=== PATIENT | female | born 2000 | race Caucasian/White ===

== ENCOUNTER 2021-09-20 22:17 | Emergency (ER) | payer SELFPAY ==
[2021-09-21 00:56] VITALS: BP 112/56
[2021-09-21 01:33] LABS: Basophils % (Auto) 0.5 % (0.0-1.8); Eosinophils # (Auto) 0.1 K/mm3 (0.0-0.4); Eosinophils % (Auto) 1.5 % (0.0-4.3); Hematocrit 40.8 % (30.3-42.9); Hemoglobin 13.4 gm/dl (10.1-14.3); Lymphocytes # (Auto) 3.7 K/mm3 (1.2-5.4); Lymphocytes % (Auto) 41.2 % (13.4-35.0); Mean Corpuscular HGB Conc 33 % (30-34); Mean Corpuscular Volume 88 fl (79-97); Monocytes # (Auto) 0.6 K/mm3 (0.0-0.8); Monocytes % (Auto) 6.3 % (0.0-7.3); Platelet Count 266 K/mm3 (140-440); Red Blood Count 4.63 M/mm3 (3.65-5.03); Red Cell Distribution Width 13.5 % (13.2-15.2)
[2021-09-21 01:48] LABS: Alanine Aminotransferase 12 units/L (7-56); Blood Urea Nitrogen 11 mg/dL (7-17); Calcium 9.9 mg/dL (8.4-10.2); Hemolysis Index 10
[2021-09-21 02:08] LABS: BUN/Creatinine Ratio 18
[2021-09-21 02:24] LABS: Bilirubin,Urine NEG (Negative); Blood,Urine NEG (Negative); Calcium Oxalate Crystals,Urine 1+; Color,Urine Yellow (Yellow); Mucus,Urine 3+ /HPF; Urobilinogen,Urine < 2.0 mg/dL (<2.0)
[2021-09-21] MEDS ORDERED: ONDANSETRON 4 MG ODT TAB PO ONE (09:27)
[2021-09-21] MEDS ORDERED: AMOXICILLIN 500 MG CAP PO ONE (09:27)
--- NOTE | 2021-09-21 09:59 | Emergency Department Report ---
[place] [facility] Chief Complaint: Chest Pain Stated Complaint: VOMITTING Time Seen by Provider: 09/21/21 09:27 ED Review of Systems ROS: Stated complaint: VOMITTING Other details as noted in HPI ED Past Medical Hx - Past Medical History Previous Medical History?: No - Surgical History Past Surgical History?: No Dysuria Exam - Exam General: Vital signs noted. No distress. Alert and acting appropriately. Labs: Lab Results 09/21/21 09/21/21 09/21/21 Range/Units 01:01 01:01 Unknown WBC 9.0 (4.5-11.0) K/mm3 RBC 4.63 (3.65-5.03) M/mm3 Hgb 13.4 (10.1-14.3) gm/dl Hct 40.8 (30.3-42.9) % MCV 88 (79-97) fl MCH 29 (28-32) pg MCHC 33 (30-34) % RDW 13.5 (13.2-15.2) % Plt Count 266 (140-440) K/mm3 Lymph % (Auto) 41.2 H (13.4-35.0) % [place] % (Auto) 6.3 (0.0-7.3) % Eos % (Auto) 1.5 (0.0-4.3) % Baso % (Auto) 0.5 (0.0-1.8) % Lymph # (Auto) 3.7 (1.2-5.4) K/mm3 [place] # (Auto) 0.6 (0.0-0.8) K/mm3 Eos # (Auto) 0.1 (0.0-0.4) K/mm3 Baso # (Auto) 0.0 (0.0-0.1) K/mm3 Seg Neutrophils % 50.5 (40.0-70.0) % Seg Neutrophils # 4.5 (1.8-7.7) K/mm3 Sodium 137 (137-145) mmol/L Potassium 3.6 (3.6-5.0) mmol/L Chloride 100.6 (98-107) mmol/L Carbon Dioxide 21 L (22-30) mmol/L Anion Gap 19 mmol/L BUN 11 (7-17) mg/dL Creatinine 0.6 (0.6-1.2) mg/dL Estimated GFR > 60 ml/min BUN/Creatinine Ratio 18 % Glucose 95 (65-100) mg/dL Calcium 9.9 (8.4-10.2) mg/dL Total Bilirubin 0.30 (0.1-1.2) mg/dL AST 18 (5-40) units/L ALT 12 (7-56) units/L Alkaline Phosphatase 71 (35-129) units/L Total Protein 8.6 H (6.3-8.2) g/dL Albumin 5.0 (3.9-5) g/dL Albumin/Globulin Ratio 1.4 % Urine Color Yellow (Yellow) Urine Turbidity Cloudy (Clear) Urine pH 5.0 (5.0-7.0) Ur Specific [place] 1.025 (1.003-1.030) Urine Protein 30 mg/dl (Negative) mg/dL Urine Glucose (UA) Neg (Negative) mg/dL Urine Ketones Neg (Negative) mg/dL Urine Blood Neg (Negative) Urine Nitrite Neg (Negative) Urine Bilirubin Neg (Negative) Urine Urobilinogen < 2.0 (<2.0) mg/dL Ur Leukocyte Esterase Lg (Negative) Urine WBC (Auto) 14.0 H (0.0-6.0) /HPF Urine RBC (Auto) 14.0 (0.0-6.0) /HPF U Epithel Cells (Auto) 60.0 H (0-13.0) /HPF Calcium Oxalate Crystal 1+ Urine Mucus 3+ /HPF ED Course Vital Signs 09/21/21 00:54 Temperature 97.6 F Pulse Rate 89 Respiratory 18 Rate Blood Pressure 112/56 [Left] O2 Sat by Pulse 98 Oximetry ED Medical Decision Making - Lab Data Result diagrams: 09/21/21 01:01 09/21/21 01:01 Critical care attestation.: If time is entered above; I have spent that time in minutes in the direct care of this critically ill patient, excluding procedure time. ED Disposition Clinical Impression: UTI (urinary tract infection) Disposition: 01 HOME / SELF CARE / HOMELESS Is pt being admited?: No Does the pt Need Aspirin: No Condition: Stable Instructions: Urinary Tract Infection, Adult Additional Instructions: Medication as ordered today Motrin or Tylenol for pain or fever Stay well-hydrated with water Diet and activity as tolerated Follow-up with primary care doctor, a referral has been given below, to make sure this is gone away. Referrals: MARTIN MINOR MD [Staff Physician] - 3-5 Days Time of Disposition: 09:57
== END 2021-09-21 11:40 | disposition home or self-care (01) ==
LOC: ED 22:17
DX: N39.0 Urinary tract infection, site not specified (principal)
CPT/HCPCS: 36415; 80053; 81001; 84702; 85025; 87086; 99283; J3490; Q0162